=== PATIENT | female | born 1955 | race Caucasian/White ===

== ENCOUNTER → 2023-03-27 15:34 | Outpatient (BNVA) | payer MEDICARE, OTHER, SELFPAY | PROVIDERS: Visit Provider Nurse Practitioner | DX: M25.532 Pain in left wrist (principal); Z13.6 Encounter for screening for cardiovascular disorders; R49.0 Dysphonia; E55.9 Vitamin D deficiency, unspecified | CPT/HCPCS: 73110; 80053; 80061; 82306; 82607; 84439; 84443; 84481; 85025 ==